=== PATIENT | female | born 1950 | race Caucasian/White ===

== ENCOUNTER 2023-08-21 11:20 | Outpatient (OUT) | payer MEDICARE, SELFPAY ==
--- NOTE | 2023-08-21 | MM_ITS ---
Patient Name: ELIZABETH MAGDALENO MR#: [id number] : 1950 Exam Date: 08/21/2023 Ordering Doctor: KASSIE CLARKE RADIOLOGY REPORT PROCEDURE: MM TOMOSYNTHESIS SCREENING BI COMPARISON: MG MAMM SCREEN 3D ROSIE CAD, 07/28/2022. MG MAMM SCREEN 3D ROSIE CAD, 07/22/2021. MG MAMM SCREEN ROSIE W CAD, 07/07/2020. MG MAMM ROSIE SCRN W CAD DIG, 08/27/2013. INDICATIONS: Screening for malignant neoplasm Calculator Name NCI Breast Cancer Risk Assessment Tool 5 Year Breast Cancer Risk 2.20% Lifetime Breast Cancer Risk 5.60% Personal Breast Cancer No Personal Ovarian Cancer No Treatments None Family Cancers Brother with prostate cancer at age 62. LOCATION: [facility] BREAST COMPOSITION: Heterogeneously dense,which may obscure small masses. FINDINGS: DIAGNOSTIC CATEGORY 0--INCOMPLETE: NEED ADDITIONAL IMAGING EVALUATION. RIGHT BREAST: No significant suspicious finding. No significant change has occurred. LEFT BREAST: Lower-inner chronic joint approximately 6 o'clock is a new 2.3 cm lobular spiculated mass suspicious for malignancy. Spot magnification views and ultrasound evaluation recommended. RECOMMENDATIONS: ADDITIONAL MAMMOGRAPHIC VIEWS REQUIRED: LEFT BREAST - LEFT CRANIOCAUDAL SPOT MAGNIFICATION VIEW - LEFT OBLIQUE SPOT MAGNIFICATION VIEW - ULTRASOUND: LEFT BREAST PLEASE NOTE: A NORMAL MAMMOGRAM DOES NOT EXCLUDE THE POSSIBILITY OF BREAST CANCER. A CLINICALLY SUSPICIOUS PALPABLE LUMP SHOULD BE BIOPSIED. Dictated by: Khadar Bellamy M.D. on 08/23/2023 at 11:56 Approved by: Khadar Bellamy M.D. on 08/23/2023 at 12:09
== END 2023-08-21 11:21 | disposition home or self-care (01) ==
LOC: MAMMO 11:22
PROVIDERS: PCP Nurse Practitioner; Visit Provider Nurse Practitioner
DX: Z12.31 Encounter for screening mammogram for malignant neoplasm of breast (principal); N63.24 Unspecified lump in the left breast, lower inner quadrant; Z80.42 Family history of malignant neoplasm of prostate
CPT/HCPCS: 77063; 77067

== ENCOUNTER 2023-09-14 13:45 | Outpatient (OUT) | payer MEDICARE, SELFPAY ==
--- OUTSIDE RECORDS SUMMARY | 2023-09-14 13:47 | XMS_ITS | CCD ---
Author Name Unknown Address [address] [place] [id number] Organization [facility] Care Team Providers Care Identification Technician Name Role Phone KASSIE CLARKE Primary Care Unavailable KASSIE CLARKE Attending Unavailable DR JEANNE CASSIDY V Consulting Unavailable KASSIE CLARKE Admitting Unavailable KASSIE CLARKE Consulting Unavailable Problems Problem Classification Problem Date Documented Da te Episodic/Chronic Other screening for suspected conditions (not mental disorders or infectious disease) (4 sources) Encounter for screening mammogram for malignant neoplasm of breast; Translations: [ENC SCR MAMMO MALIG NEOPLASM BREAST] Onset: 07-28-2022 Episodic Residual codes; unclassified (1 source) Asymptomatic menopausal state; Translations: [ASYMPTOMATIC MENOPAUSAL STATE] Onset: 08-03-2022 Episodic Residual codes; unclassified (1 source) Family history of malignant neoplasm of other organs or systems; Translations: [FAM HX MALIG NEOPLASM OTH ORGN/SYS] Onset: 08-03-2022 Episodic Results Test Name Value Interpretation Reference Range Facil ity MG MAMM SCREEN 3D ROSIE CADon 07-28-2022 MG MAMM SCREEN 3D ROSIE CAD Patient: ELIZABETH MAGDALENO. Exam Date: 07/28/2022 : 1950 Gender:F Ordering : KASSIE CLARKE Admission #: [id number] Family : Order #: [id number] CLICK HERE TO VIEW EXAM RADIOLOGY REPORT PROCEDURE: MAMMOGRAM SCREENING 3D BILATERAL CAD COMPARISON: MG MAMM SCREEN ROSIE W CAD, 07/07/2020. MG MAMM SCREEN 3D ROSIE CAD, 07/22/2021. INDICATIONS: Screening mammography Calculator Name NCI Breast Cancer Risk Assessment Tool 5 Year Breast Cancer Risk 2.10% Lifetime Breast Cancer Risk 6.20% Personal Breast Cancer No Personal Ovarian Cancer No Treatments None Family Cancers Brother with prostate cancer at age 62. LOCATION: [facility] BREAST COMPOSITION: Heterogeneously dense,which may obscure small masses. FINDINGS: DIAGNOSTIC CATEGORY 2--BENIGN FINDING. NO CHANGE FROM COMPARISON. Scattered benign-appearing nodules are present. Scattered benign-appearing calcifications are present. Scattered benign-appearing lymph nodes are present. RIGHT BREAST: No significant suspicious finding. LEFT BREAST: No significant suspicious finding. RECOMMENDATIONS: ROUTINE MAMMOGRAM AND CLINICAL EVALUATION IN 12 MONTHS. PLEASE NOTE: A NORMAL MAMMOGRAM DOES NOT EXCLUDE THE POSSIBILITY OF BREAST CANCER. A CLINICALLY SUSPICIOUS PALPABLE LUMP SHOULD BE BIOPSIED. Dictated by: Jeanne Cassidy MD on 07/28/2022 at 14:13 Approved by: Jeanne Cassidy MD on 07/28/2022 at 14:15 Normal [facility] XR DEXA BONE DENSITYon 07-28 XR DEXA BONE DENSITY EXAMINATION: XR DEXA BONE DENSITY, 07/28/2022 12:58 PM EDT HISTORY: Menopause present COMPARISON: 2007 TECHNIQUE: Dual-energy X-ray absorptiometry (DEXA) bone density study performed for the axial skeleton. FINDINGS: Bone mineral density AP spine L1-L4 measures 1.300 g/sq cm. T score 1.0. WHO classification: Normal. Lowest bone mineral density right femoral neck measures 0.896 g/sq cm. T score -1.0. WHO classification: Normal IMPRESSION: Normal bone mineral density. Low fracture risk Electronically authenticated by: JEANNE CASSIDY Date: 2022-07-28 17:09 Normal [facility] Encounters Encounter Date Encounter Type Care Provider Facility Start: 07-28-2022 End: 07-29-2022 [facility] Facility: Payers Date Payer Category Payer Medicare [id number] 1950 Unknown [id number] Summary Purpose Family History No Family History Records Found Advance Directives No Advanced Directives Records Found Additional Source Comments INFORMATION SOURCE (unrecogn ized section and content) DATE CREATED AUTHOR 08/04/2022 [facility] FOR RECORDS PERTAINING TO PATIENTS WHO ARE OR HAVE BEEN ENROLLED IN A CHEMICAL DEPENDENCY/SUBSTANCEABUSE PROGRAM, SOME INFORMATION MAY BE OMITTED. This clinical summary was aggregated from multiple sources. Caution should be exercised in using it in the provision of clinical care. This summary normalizes information from multiple sources, and as a consequence, information in this document may materially change the coding, format and clinical context of patient data. In addition, data may be omitted in some cases. CLINICAL DECISIONS SHOULD BE BASED ON THE PRIMARY CLINICAL RECORDS. [facility]. provides no warranty or guarantee of the accuracy or completeness of information in this document.
--- NOTE | 2023-09-14 13:49 | MM_ITS ---
Patient Name: ELIZABETH MAGDALENO MR#: [id number] : 1950 Exam Date: 09/14/2023 Ordering Doctor: KASSIE CLARKE RADIOLOGY REPORT PROCEDURE: MM DIAGNOSTIC MAMMO UNILAT LT, 09/14/2023, 13:54 US BREAST LT LIMITED, 09/14/2023, 14:25 COMPARISON: MM TOMOSYNTHESIS SCREENING BI, 08/21/2023. MG MAMM SCREEN 3D ROSIE CAD, 07/28/2022. MG MAMM SCREEN 3D ROSIE CAD, 07/22/2021. MG MAMM SCREEN ROSIE W CAD, 07/07/2020. INDICATIONS: Abnormal Mammogram Left Breast Calculator Name NCI Breast Cancer Risk Assessment Tool 5 Year Breast Cancer Risk 2.20% Lifetime Breast Cancer Risk 5.60% Personal Breast Cancer No Personal Ovarian Cancer No Treatments None Family Cancers Brother with prostate cancer at age 62. LOCATION: [facility] BREAST COMPOSITION: Heterogeneously dense,which may obscure small masses. FINDINGS: DIAGNOSTIC CATEGORY 5--HIGHLY SUGGESTIVE OF MALIGNANCY. HIGH PROBABILITY OF MALIGNANCY BASED ON THE FOLLOWING: LEFT BREAST: Spot magnification views dense been straight persistence of a geographic shaped poorly larger [place] mass with pleomorphic calcifications at approximately the 6 o'clock position, mid breast. Ultrasound evaluation demonstrates a geographic shaped hypoechoic irregularly marginated 2.0 x 1.8 x 1.5 cm mass at the 6 o'clock position 2.1 cm from the nipple. Findings are suspicious for malignancy. Ultrasound-guided tissue sampling is recommended. RECOMMENDATIONS: ULTRASOUND-GUIDED CORE BIOPSY: LEFT BREAST PLEASE NOTE: A NORMAL MAMMOGRAM DOES NOT EXCLUDE THE POSSIBILITY OF BREAST CANCER. A CLINICALLY SUSPICIOUS PALPABLE LUMP SHOULD BE BIOPSIED. Dictated by: Khadar Bellamy M.D. on 09/14/2023 at 14:41 Approved by: Khadar Bellamy M.D. on 09/14/2023 at 14:45
== END 2023-09-14 13:46 | disposition home or self-care (01) ==
LOC: MAMMO 13:45
PROVIDERS: PCP Nurse Practitioner; Visit Provider Nurse Practitioner
DX: R92.8 Other abnormal and inconclusive findings on diagnostic imaging of breast (principal); Z80.42 Family history of malignant neoplasm of prostate
CPT/HCPCS: 76642; 77065

== ENCOUNTER 2023-09-25 12:50 | Day surgery (SDC) | payer MEDICARE, SELFPAY ==
--- OUTSIDE RECORDS SUMMARY | 2023-09-25 12:56 | XMS_ITS | CCD ---
Author Name Unknown Address [address] [place] [address] Organization [facility] Care Team Providers Care Hearing Aid Dispenser Name Role Phone KASSIE CLARKE Primary Care [...] Gender:F Ordering : KASSIE CLARKE Admission #: [id number] Family : Order #: [id number] CLICK HERE TO VIEW EXAM RADIOLOGY REPORT [...] prostate cancer at age 63. LOCATION: [facility] BREAST COMPOSITION: Heterogeneously dense,which may obscure small [...] Cassidy MD on 07/28/2022 at 14:15 Normal [facility] XR DEXA BONE DENSITYon 07-28 XR [...] by: JEANNE CASSIDY Date: 2022-07-28 17:09 Normal [facility] Encounters Encounter Date Encounter Type Care Provider Facility Start: 07-28-2022 End: 07-29-2022 [facility] Facility: Payers Date Payer Category Payer Medicare [id number] 1950 Unknown [id number] Summary Purpose Family History No Family History Records Found Advance Directives No Advanced Directives Records Found Additional Source Comments INFORMATION SOURCE (unrecogn ized section and content) DATE CREATED AUTHOR 08/04/2022 [facility] FOR RECORDS PERTAINING TO PATIENTS WHO ARE [...] BE BASED ON THE PRIMARY CLINICAL RECORDS. [employer] [facility]. provides no warranty or guarantee of the accuracy or completeness of information in this document.
--- NOTE | 2023-09-25 13:00 | US_ITS ---
[address] [address] Patient Name: ELIZABETH MAGDALENO MRN: [id number] date: 1950 Sex: F Assigned Patient Location: Current Patient Location: US Accession/Order Number: [id number] Exam Date: 09/25/2023 13:40 Report Date: 09/25/2023 14:33 At the request of: KASSIE CLARKE Procedure: US breast vac bx w/ clip LT EXAMINATION: US breast vac bx w/ clip LT HISTORY: Abnormal Left Breast Mammogram COMPARISON: No relevant comparison available. TECHNIQUE: After obtaining informed consent, ultrasound-guided fine needle aspiration was performed in the usual sterile manner. FINDINGS: IMAGING: Ultrasound. BIOPSY NEEDLE: 13-gauge vacuum-assisted mammotome core biopsy needle LOCATION: 1.8 cm left breast mass SPECIMEN TYPE: 5 core samples LOCAL ANESTHETIC: 20 cc 1% buffered lidocaine with epinephrine deep. 10 cc 1% buffered lidocaine without epinephrine COMPLICATIONS: None. LABORATORY: Prepared slide smears and washings for cell block evaluation. OTHER: Negative. PATHOLOGY: Pending. An addendum will be added when results are available. US/US breast vac bx w/ clip LT IMPRESSION: 1. Uneventful ultrasound guided core biopsy of a left breast mass 2. Pathology results are pending. Electronically authenticated by: JEANNE KELLY Date: 09/25/2023 14:33
[2023-09-25 13:05] VITALS: BP 157/90; PULSE 78; O2SAT 98
[2023-09-25] MEDS: LIDOCAINE HCL 10 ML, SODIUM BICARBONATE 1 MEQ INJ (13:50)
--- NOTE | 2023-09-25 14:25 | MM_ITS ---
Patient Name: ELIZABETH MAGDALENO MR#: [id number] : 1950 Exam Date: 09/25/2023 Ordering Doctor: KASSIE CLARKE This report includes an Addendum and supersedes previous reports for this exam. RADIOLOGY REPORT PROCEDURE: MM POST BIOPSY LT COMPARISON: MM DIAGNOSTIC MAMMO UNILAT LT, 09/14/2023. INDICATIONS: Abnormal Left Breast Mammogram BREAST COMPOSITION: Heterogeneously dense,which may obscure small masses. FINDINGS: BIOPSY MARKER: A metallic marker has been placed in the targeted location within the lower inner quadrant of the left breast. 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 Surgical and oncology follow-up is required Findings were faxed to Dr. Clarek and verified with Elaina by telephone RECOMMENDATIONS: SURGICAL CONSULTATION. Dictated by: Yuriy Cassidy MD on 10/10/2023 at 08:46 Approved by: Yuriy Cassidy MD on 10/10/2023 at 08:48
--- NOTE | 2023-09-25 14:58 | SUR.PREOP ---
09/18/23 Pt instructed on procedure, date, time and to hold ASA x 5 days prior to biopsy.
== END 2023-09-25 14:30 | disposition home or self-care (01) ==
LOC: US 12:53
PROVIDERS: Radiology Diagnostic Radiology; PCP Nurse Practitioner; Visit Provider Nurse Practitioner
DX: C50.812 Malignant neoplasm of overlapping sites of left female breast (principal); Z17.0 Estrogen receptor positive status [ER+]
CPT/HCPCS: 19083; 77065; 88305; 88341; 88342; 88360